=== PATIENT | male | born 1950 | race Asian ===

== ENCOUNTER 2022-08-10 15:03 | Inpatient (IN) | payer OTHER ==
[2022-08-10] MEDS: LACTATED RINGERS SOLUTION 1000 ML INFUS.BAG IV ONE ×2 (16:49→21:39)
[2022-08-10] MEDS ORDERED: FAMOTIDINE 10 MG TABLET PO ONE (16:53)
[2022-08-10] MEDS ORDERED: MAG HYDROX/AL HYDROX/SIMETH -MYLANTA- ORAL SUSPENSION PO ONE (16:53)
[2022-08-10] MEDS ORDERED: MAGNESIUM HYDROX 2400MG/30ML ORAL SUSPENSION 30 ML CUP PO ONE (16:56)
[2022-08-10] MEDS ORDERED: FAMOTIDINE 10 MG TABLET ONE (17:15)
[2022-08-10] MEDS ORDERED: MAG HYDROX/AL HYDROX/SIMETH 30 ML UNIT-DOSE CUP ONE (17:16)
[2022-08-10] MEDS ORDERED: MAGNESIUM HYDROX 2400MG/30ML ORAL SUSPENSION 30 ML CUP ONE (17:16)
[2022-08-10 17:44] LABS: EOS % 18.4 % (0-4.5); HEMATOCRIT 50.3 % (35.4-49); LYMPH % 18.2 % (8-40); MCH 30.7 pg (25.7-33.7); MCHC 33.8 g/dl (32.0-35.9); MEAN CELL VOLUME 90.8 fl (80-96); MEAN PLT VOLUME 9.7 fl (7.5-11.1); MONO % 6.5 % (3.8-10.2); NEUT % 55.9 % (42.8-82.8); PLATELET COUNT 124 10^3/uL (134-434); RBC 5.54 M/mm3 (4.00-5.60); WHITE BLOOD COUNT 15.5 K/mm3 (4.0-10.0)
[2022-08-10] MEDS ORDERED: MECLIZINE HCL 12.5 MG TABLET PO ONE (18:13)
[2022-08-10 18:16] LABS: CHLORIDE 99 mmol/L (98-107); SODIUM 129 mmol/L (136-145)
[2022-08-10 18:18] LABS: ALBUMIN 3.3 g/dl (3.4-5.0); CALCIUM 9.2 mg/dL (8.5-10.1)
[2022-08-10 18:19] LABS: CO2 26 mmol/L (21-32); GLUCOSE,RANDOM 164 mg/dL (74-106)
[2022-08-10] MEDS ORDERED: MECLIZINE HCL 12.5 MG TABLET ONE (18:19)
[2022-08-10 18:23] LABS: BILIRUBIN,TOTAL 0.6 mg/dL (0.2-1); TOT PROT 8.6 g/dl (6.4-8.2)
[2022-08-10 18:24] LABS: ALK PHOS 79 U/L (45-117)
[2022-08-10 18:27] LABS: N-TERMINAL BNP 317.3 pg/ml (5-125)
[2022-08-10 18:45] LABS: CHOLESTEROL 191 mg/dL (50-200); TRIGLYCERIDES 236 mg/dL (0-150)
[2022-08-10 18:47] LABS: LDL CHOLESTEROL (ONLY SJRH) 126 mg/dL (5-100)
[2022-08-10 20:05] LABS: ANION GAP 4 MMOL/L (8-16); LIPASE 9933 U/L (73-393); SGOT/AST 102 U/L (15-37); SGPT/ALT 24 U/L (13-61)
[2022-08-10 21:12] LABS: HDL CHOLESTEROL 52 mg/dL (40-60)
[2022-08-10 22:32] LABS: CHLORIDE 98 mmol/L (98-107); SODIUM 130 mmol/L (136-145)
[2022-08-10 22:35] LABS: ALBUMIN 3.1 g/dl (3.4-5.0); BLOOD UREA NITROGEN 16.9 mg/dL (7-18); CALCIUM 8.9 mg/dL (8.5-10.1); CO2 24 mmol/L (21-32); GLUCOSE,RANDOM 110 mg/dL (74-106)
[2022-08-10 22:38] LABS: SGOT/AST 80 U/L (15-37)
[2022-08-10 22:42] LABS: ALK PHOS 81 U/L (45-117)
[2022-08-10] MEDS ORDERED: LACTATED RINGERS SOLUTION 1,000 ML IV SCH (23:00)
[2022-08-10 23:13] LABS: ANION GAP 8 MMOL/L (8-16); SGPT/ALT 21 U/L (13-61)
[2022-08-10 23:24] LABS: AMYLASE > 1300 U/L (25-115); LIPASE 23679 U/L (73-393)
[2022-08-11 05:10] VITALS: BMI 24.6
[2022-08-11] MEDS ORDERED: INSULIN (NOVOLOG) ASPART 100 UNITS/ML 10ML VIAL ONE (08:57)
[2022-08-11] MEDS ORDERED: INSULIN (LEVEMIR) 100 UNITS/ML UNITS SQ ONE (08:57)
[2022-08-11] MEDS ORDERED: HEPARIN NA (PORCINE) 5,000 UNITS/ML 1ML VIAL SQ SCH (10:00)
[2022-08-11 10:19] LABS: BASO % 0.6 % (0-2.0); EOS % 11.7 % (0-4.5); HEMOGLOBIN 15.8 GM/dL (11.7-16.9); LYMPH % 20.7 % (8-40); MCH 31.1 pg (25.7-33.7); MCHC 34.4 g/dl (32.0-35.9); MEAN CELL VOLUME 90.2 fl (80-96); MEAN PLT VOLUME 9.1 fl (7.5-11.1); MONO % 6.8 % (3.8-10.2); NEUT % 60.2 % (42.8-82.8); PLATELET COUNT 107 10^3/uL (134-434); RBC 5.09 M/mm3 (4.00-5.60); RDW 13.9 % (11.9-15.9); WHITE BLOOD COUNT 9.5 K/mm3 (4.0-10.0)
[2022-08-11 10:44] LABS: CALCIUM 8.8 mg/dL (8.5-10.1)
[2022-08-11 10:45] LABS: ALBUMIN 2.8 g/dl (3.4-5.0); BLOOD UREA NITROGEN 14.8 mg/dL (7-18); MAGNESIUM 1.6 mg/dL (1.8-2.4)
[2022-08-11 10:48] LABS: CREATININE 0.8 mg/dL (0.55-1.3)
[2022-08-11 10:50] LABS: BILIRUBIN,TOTAL 0.8 mg/dL (0.2-1); TOT PROT 6.5 g/dl (6.4-8.2)
[2022-08-11] MEDS ORDERED: ONDANSETRON 4 MG/2 ML VIAL IVPUSH PRN (13:34)
[2022-08-11 14:06] LABS: PHOSPHOROUS 3.8 mg/dL (2.5-4.9)
[2022-08-11] MEDS: ENOXAPARIN NA (PORCINE) 40 MG/0.4 ML DISP.SYRIN SQ SCH (15:15)
[2022-08-11] MEDS: FAMOTIDINE 20 MG/50 ML IVPB 20 MG/50 ML MG IVPB SCH ×2 (15:15→22:54)
[2022-08-11] MEDS: POLYETHYLENE GLYCOL (HEALTHYLAX) 3350 17 GM PACKET PO SCH ×2 (15:21→22:54)
[2022-08-11] MEDS: LACTATED RINGERS SOLUTION 1,000 ML IV SCH (15:21)
[2022-08-11 16:54] LABS: EPI CELLS 1 /uL (0-25.1); HYALINE CASTS 1 /uL (0-3.1); URINE APPEARANCE CLEAR; URINE BACTERIA 0 /uL (0-1359); URINE BILIRUBIN NEGATIVE (NEGATIVE); URINE COLOR YELLOW; URINE GLUCOSE (UA) 3+ (NEGATIVE); URINE KETONE 2+ (NEGATIVE); URINE LEUK ESTERASE NEGATIVE (NEGATIVE); URINE NITRITE NEGATIVE (NEGATIVE); URINE PROTEIN 2+ (NEGATIVE); URINE RBC 10 /uL (0-23.9); URINE UROBILINOGEN 0.2 mg/dL (0.2-1.0); URINE WBC 1 /uL (0-25.8)
[2022-08-11] MEDS: INSULIN SLIDING SCALE (NOVOLOG) 1 VIAL SQ SCH (17:07)
[2022-08-11] MEDS ORDERED: MAGNESIUM 1GM/D5W - 1 GM/100 ML IVPB IVPB ONE (21:43)
[2022-08-11] MEDS ORDERED: ACETAMINOPHEN 500 MG TABLET (FP) PO ONE (21:46)
[2022-08-12] MEDS: LEVOTHYROXINE NA 50 MCG TABLET (FP) PO SCH (06:55)
[2022-08-12] MEDS: INSULIN SLIDING SCALE (NOVOLOG) 1 VIAL SQ SCH ×3 (08:16→17:37)
[2022-08-12] MEDS: FAMOTIDINE 20 MG/50 ML IVPB 20 MG/50 ML MG IVPB SCH ×2 (09:15→21:42)
[2022-08-12] MEDS: POLYETHYLENE GLYCOL (HEALTHYLAX) 3350 17 GM PACKET PO SCH ×2 (09:15→21:40)
[2022-08-12] MEDS: ENOXAPARIN NA (PORCINE) 40 MG/0.4 ML DISP.SYRIN SQ SCH (09:15)
[2022-08-12 09:24] LABS: BASO % 0.8 % (0-2.0); HEMATOCRIT 44.5 % (35.4-49); HEMOGLOBIN 15.4 GM/dL (11.7-16.9); LYMPH % 21.3 % (8-40); MCH 30.8 pg (25.7-33.7); MCHC 34.6 g/dl (32.0-35.9); MEAN PLT VOLUME 9.5 fl (7.5-11.1); MONO % 6.3 % (3.8-10.2); NEUT % 59.6 % (42.8-82.8); PLATELET COUNT 106 10^3/uL (134-434); RDW 13.3 % (11.9-15.9); WHITE BLOOD COUNT 7.7 K/mm3 (4.0-10.0)
[2022-08-12 10:04] LABS: ALBUMIN 2.8 g/dl (3.4-5.0); BLOOD UREA NITROGEN 11.8 mg/dL (7-18); CALCIUM 9.1 mg/dL (8.5-10.1)
[2022-08-12 10:06] LABS: CREATININE 0.7 mg/dL (0.55-1.3)
[2022-08-12 10:08] LABS: BILIRUBIN,TOTAL 0.7 mg/dL (0.2-1); TOT PROT 6.4 g/dl (6.4-8.2)
[2022-08-12] MEDS: RAMIPRIL 5 MG CAPSULE PO SCH (13:24)
[2022-08-12] MEDS: LACTATED RINGERS SOLUTION 1,000 ML IV SCH (13:49)
[2022-08-12 14:48] VITALS: RESP 18
[2022-08-12] MEDS: ROSUVASTATIN CA 20 MG TABLET PO SCH (21:42)
[2022-08-13] MEDS: INSULIN SLIDING SCALE (NOVOLOG) 1 VIAL SQ SCH ×3 (07:11→18:13)
[2022-08-13] MEDS: LEVOTHYROXINE NA 50 MCG TABLET (FP) PO SCH (07:11)
[2022-08-13 09:36] LABS: BASO % 0.9 % (0-2.0); EOS % 10.3 % (0-4.5); HEMATOCRIT 46.8 % (35.4-49); HEMOGLOBIN 16.5 GM/dL (11.7-16.9); LYMPH % 25.1 % (8-40); MCH 31.2 pg (25.7-33.7); MCHC 35.2 g/dl (32.0-35.9); MEAN CELL VOLUME 88.6 fl (80-96); MEAN PLT VOLUME 9.1 fl (7.5-11.1); MONO % 8.1 % (3.8-10.2); NEUT % 55.6 % (42.8-82.8); PLATELET COUNT 134 10^3/uL (134-434); RBC 5.29 M/mm3 (4.00-5.60); RDW 13.6 % (11.9-15.9); WHITE BLOOD COUNT 9.6 K/mm3 (4.0-10.0)
[2022-08-13 09:58] LABS: CALCIUM 9.2 mg/dL (8.5-10.1); CREATININE 0.7 mg/dL (0.55-1.3)
[2022-08-13 10:00] LABS: BILIRUBIN,TOTAL 0.7 mg/dL (0.2-1); BLOOD UREA NITROGEN 9.4 mg/dL (7-18); MAGNESIUM 1.6 mg/dL (1.8-2.4); TOT PROT 6.9 g/dl (6.4-8.2)
[2022-08-13] MEDS: ENOXAPARIN NA (PORCINE) 40 MG/0.4 ML DISP.SYRIN SQ SCH (10:52)
[2022-08-13] MEDS: RAMIPRIL 5 MG CAPSULE PO SCH (10:52)
[2022-08-13] MEDS: POLYETHYLENE GLYCOL (HEALTHYLAX) 3350 17 GM PACKET PO SCH ×2 (10:53→22:52)
[2022-08-13] MEDS: FAMOTIDINE 20 MG/50 ML IVPB 20 MG/50 ML MG IVPB SCH ×2 (10:53→22:52)
[2022-08-13] MEDS: LACTATED RINGERS SOLUTION 1,000 ML IV SCH ×2 (11:56→15:12)
[2022-08-13] MEDS: ROSUVASTATIN CA 20 MG TABLET PO SCH (22:52)
[2022-08-13] MEDS ORDERED: METHYL SALICYLATE/MENTHOL OINT 30 GM TUBE TP PRN (23:10)
[2022-08-13] MEDS ORDERED: ACETAMINOPHEN 325 MG TABLET (FP) PO PRN (23:10)
[2022-08-14] MEDS: LEVOTHYROXINE NA 50 MCG TABLET (FP) PO SCH (06:43)
[2022-08-14] MEDS: INSULIN SLIDING SCALE (NOVOLOG) 1 VIAL SQ SCH ×2 (06:43→11:32)
[2022-08-14 09:07] LABS: BASO % 0.6 % (0-2.0); EOS % 10.4 % (0-4.5); HEMOGLOBIN 15.1 GM/dL (11.7-16.9); LYMPH % 21.8 % (8-40); MCHC 35.1 g/dl (32.0-35.9); MEAN CELL VOLUME 88.4 fl (80-96); MEAN PLT VOLUME 8.7 fl (7.5-11.1); MONO % 10.1 % (3.8-10.2); NEUT % 57.1 % (42.8-82.8); PLATELET COUNT 129 10^3/uL (134-434); RBC 4.87 M/mm3 (4.00-5.60); RDW 13.4 % (11.9-15.9); WHITE BLOOD COUNT 7.9 K/mm3 (4.0-10.0)
[2022-08-14] MEDS: LACTATED RINGERS SOLUTION 1,000 ML IV SCH ×2 (09:14→11:31)
[2022-08-14] MEDS: POLYETHYLENE GLYCOL (HEALTHYLAX) 3350 17 GM PACKET PO SCH (09:15)
[2022-08-14] MEDS: ENOXAPARIN NA (PORCINE) 40 MG/0.4 ML DISP.SYRIN SQ SCH (09:15)
[2022-08-14] MEDS: FAMOTIDINE 20 MG/50 ML IVPB 20 MG/50 ML MG IVPB SCH (09:15)
[2022-08-14] MEDS: RAMIPRIL 5 MG CAPSULE PO SCH (09:15)
[2022-08-14 09:20] LABS: ALBUMIN 2.5 g/dl (3.4-5.0); CALCIUM 8.6 mg/dL (8.5-10.1)
[2022-08-14 09:21] LABS: BLOOD UREA NITROGEN 9.8 mg/dL (7-18)
[2022-08-14 09:23] LABS: CREATININE 0.8 mg/dL (0.55-1.3)
[2022-08-14 09:25] LABS: BILIRUBIN,TOTAL 0.7 mg/dL (0.2-1)
[2022-08-14] MEDS ORDERED: PIPERACILLIN/TAZOB 3.375 GM 3.375 GM in DEXTROSE 5%-WATER - 50 ML IVPB SCH ×2 (11:30→18:00)
[2022-08-14 15:27] VITALS: BP 155/90; PULSE 99; TEMP 97.7
== END 2022-08-14 16:10 | disposition short-term general hospital (02) | DRG 440 ==
LOC: JER 15:03 → UNDOADMOB 22:16 → INTOOBSV 22:16 → JERBED 22:16 → J8W 08-11 00:38 → OBSVTOIN 08-12 12:15
PROVIDERS: ADMIT Internal Medicine; ATTEND Internal Medicine
DX: K85.10 Biliary acute pancreatitis without necrosis or infection (principal); K59.00 Constipation, unspecified; E11.9 Type 2 diabetes mellitus without complications; E03.9 Hypothyroidism, unspecified; E78.5 Hyperlipidemia, unspecified; I10 Essential (primary) hypertension; F10.10 Alcohol abuse, uncomplicated
CPT/HCPCS: 0241U-QW; 36415; 71275-TC; 74177-TC; 74181-TC; 74182-TC; 76705-TC; 80053; 80061; 81003; 82150; 82787; 82962; 83690; 83735; 83880; 84100; 84439; 84443; 84484; 85025; 86140; 87040; 87086; 93005; 93010; 99285-25; A9579; C9803-CS; G0378; J1644; U0003; U0005

== ENCOUNTER 2022-12-11 08:34 | Day surgery (SDC) | payer OTHER ==
[2022-11-22 12:26] VITALS: BMI 24.4
[2022-12-11] MEDS ORDERED: TRANEXAMIC ACID 1000 MG/10 ML VIAL IVPUSH ONE (08:53)
[2022-12-11] MEDS ORDERED: CEFAZOLIN 2 GM in DEXTROSE 5%-WATER - 50 ML IVPB ONE (08:53)
[2022-12-11] MEDS ORDERED: CELECOXIB 200 MG CAPSULE PO ONE (08:53)
[2022-12-11 09:18] VITALS: BP 154/88; PULSE 75; RESP 18; TEMP 97.7
[2022-12-11 09:55] LABS: HEMATOCRIT 49.9 % (35.4-49); HEMOGLOBIN 16.5 G/dL (11.7-16.9); MCH 30.3 pg (25.7-33.7); MCHC 33.1 g/dl (32.0-35.9); MEAN CELL VOLUME 91.4 fl (80-96); MEAN PLT VOLUME 9.3 fl (7.5-11.1); PLATELET COUNT 65.4 10^3/uL (134-434); RBC 5.46 10^6/uL (4.00-5.60); RDW 14.9 % (11.9-15.9); WHITE BLOOD COUNT 6.3 10^3/uL (4.0-10.8)
[2022-12-11] MEDS ORDERED: DEXAMETHASONE SOD PHOSPHATE 4 MG/1 ML VIAL ONE (10:35)
[2022-12-11] MEDS ORDERED: ceFAZolin SODIUM 1 GM VIAL ONE (10:35)
[2022-12-11] MEDS ORDERED: ONDANSETRON 4 MG/2 ML VIAL ONE (10:35)
[2022-12-11] MEDS ORDERED: MIDAZOLAM HCL 2 MG/2 ML SINGLE DOSE VIAL ONE (10:36)
[2022-12-11] MEDS ORDERED: PROPOFOL 40 ML ONE (10:36)
[2022-12-11] MEDS ORDERED: KETOROLAC TROMETHAMINE 30 MG/1 ML VIAL ONE (10:37)
== END 2022-12-11 11:08 | disposition home or self-care (01) ==
LOC: FASUSAT 08:34
PROVIDERS: ATTEND Orthopaedic Surgery
PROC: 0SRC0JZ Replacement of Right Knee Joint with Synthetic Substitute, Open Approach (ICD-10-PCS; principal; 2022-12-11)
DX: Z53.09 Procedure and treatment not carried out because of other contraindication (principal); M17.11 Unilateral primary osteoarthritis, right knee
CPT/HCPCS: 36415; 82962; 85027